=== PATIENT | female | born 1985 | race Caucasian/White ===

== ENCOUNTER 2017-10-16 13:05 | Emergency (ER) | payer BC ==
[2017-10-16] MEDS: BUPIVACAINE 0.25% (MPF) 10 ML 10 ML VIAL INJ (16:27)
== END 2017-10-16 17:31 | disposition home or self-care (01) ==
LOC: FTE 13:05
DX: M54.5 Low back pain (principal); M62.830 Muscle spasm of back
CPT/HCPCS: 20552; 72100; 81025; 99283-25

== ENCOUNTER 2018-01-03 03:04 | Emergency (ER) | payer BC ==
[2018-01-03] MEDS: CIPROFLOXACIN 500 MG TAB PO (05:48)
== END 2018-01-03 05:13 | disposition home or self-care (01) ==
LOC: FTE 05:13
DX: R19.7 Diarrhea, unspecified (principal)
CPT/HCPCS: 99283; Z7610